=== PATIENT | male | born 1945 | race Caucasian/White ===

== ENCOUNTER 2020-04-19 23:40 | Emergency (ER) | payer MEDICARE ==
[~2020-04-19] VITALS: Ht 170.2 cm; Wt 75.0 kg
[2020-04-19 23:59] LABS: BASOPHILS % (AUTO) 1 % (0-10); EOSINOPHILS % (AUTO) 4 % (0-10); HEMATOCRIT 44 % (40-54); HEMOGLOBIN 15.1 G/DL (13.3-17.7); LYMPHOCYTES % (AUTO) 36 % (12-44); MEAN CORPUSCULAR HEMOGLOBIN 32 PG (25-34); MEAN CORPUSCULAR HGB CONC 34 G/DL (32-36); MEAN CORPUSCULAR VOLUME 93 FL (80-99); MEAN PLATELET VOLUME 10.6 FL (7.4-10.4); MONOCYTES % (AUTO) 9 % (0-12); NEUTROPHILS % (AUTO) 51 % (42-75); PLATELET COUNT 236 10^3/uL (130-400); WHITE BLOOD COUNT 6.1 10^3/uL (4.3-11.0)
[2020-04-20] LABS: EOSINOPHILS # (AUTO) 0.3 10^3/uL (0.0-0.3); LYMPHOCYTES # (AUTO) 2.2 X 10^3 (1.0-4.0); MONOCYTES # (AUTO) 0.5 X 10^3 (0.0-1.0); NEUTROPHILS # (AUTO) 3.1 X 10^3 (1.8-7.8)
--- NOTE | 2020-04-20 | ED Chest Pain ---
General Chief Complaint: Chest Pain Stated Complaint: CHEST PAIN Source: patient Exam Limitations: no limitations History of Present Illness Date Seen by Provider: Apr 19, 2020 Time Seen by Provider: 23:53 Initial Comments Patient is a 74-year-old male who presents to the emergency department today with a chief complaint of sharp intermittent chest pain that is located just above the left nipple. Patient states that he has had an onset of this discomfort this evening. Patient states that his episodes started around 6:00 this evening. Patient states that he had accelerated episodes throughout the evening. He describes it is very brief lasting just seconds like little sharp pokes in his chest. He denies any associated symptoms of shortness of breath, diaphoresis, nausea, radiation of the pain. Patient states that he has a history of metastatic prostate cancer. He denies any recent prolonged travel or recent prolonged immobility. He denies any history of recent fevers, chills, cough, congestion. No illnesses. Patient states that he is very active and does at least 500 push-ups a week. He states he did 125 today and did not have any episodes of discomfort. Patient states he was just sitting watching TV with his this evening when he became concerned that the pain might be related to his heart and decided to present to the emergency department. Patient does have a history of hypertension but recently discontinued taking his losartan after he lost 20 pounds and his blood pressure came down. All other review of systems reviewed and negative except as stated. Timing/Duration: 4-6 hours Severity/Quality: sharp Location: other (Left mid chest) Radiation: no radiation Activities at Onset: none Prior CP/Workup: no prior chest pain, no prior cardiac workup ASA po COLLAR SETTER: No NTG SL COLLAR SETTER: No Associated Symptoms: denies symptoms Allergies and Home Medications Allergies Coded Allergies: No Known Drug Allergies (Unverified , 04/19/20) Patient Home Medication List Home Medication List Reviewed: Yes Review of Systems Review of Systems Constitutional: see HPI EENTM: No Symptoms Reported Respiratory: No Symptoms Reported Cardiovascular: Chest Pain Gastrointestinal: No Symptoms Reported Genitourinary: No Symptoms Reported Musculoskeletal: no symptoms reported Skin: no symptoms reported Psychiatric/Neurological: No Symptoms Reported Endocrine: No Symptoms Reported Hematologic/Lymphatic: No Symptoms Reported All Other Systems Reviewed Negative Unless Noted: Yes Physical Exam Vital Signs Vital Signs - First Documented 04/19/20 23:50 Temp 36.5 Pulse 63 Resp 14 B/P (MAP) 169/90 (116) Pulse Ox 96 O2 Delivery Room Air Capillary Refill : Height, Weight, BMI Height: '" Weight: lbs. oz. kg; BMI Method: General Appearance: No Apparent Distress HEENT: PERRL/EOMI Neck: Normal Inspection Respiratory: Chest Non Tender, Lungs Clear, Normal Breath Sounds, No Accessory Muscle Use, No Respiratory Distress Cardiovascular: Regular Rate, Rhythm Gastrointestinal: Normal Bowel Sounds, Non Tender, Soft Extremity: Normal Inspection, Normal Range of Motion, Non Tender, No Calf Tenderness Neurologic/Psychiatric: Alert, Oriented x3, No Motor/Sensory Deficits, Normal Mood/Affect Skin: Normal Color, Warm/Dry Progress/Results/Core Measures Results/Orders Lab Results Laboratory Tests Test 04/19/20 23:45 Range/Units White Blood Count 6.1 4.3-11.0 10^3/uL Red Blood Count 4.73 4.35-5.85 10^6/uL Hemoglobin 15.1 13.3-17.7 G/DL Hematocrit 44 40-54 % Mean Corpuscular Volume 93 80-99 FL Mean Corpuscular Hemoglobin 32 25-34 PG Mean Corpuscular Hemoglobin Concent 34 32-36 G/DL Red Cell Distribution Width 12.3 10.0-14.5 % Platelet Count 236 130-400 10^3/uL Mean Platelet Volume 10.6 H 7.4-10.4 FL Immature Granulocyte % (Auto) 0 % Neutrophils (%) (Auto) 51 42-75 % Lymphocytes (%) (Auto) 36 12-44 % Monocytes (%) (Auto) 9 0-12 % Eosinophils (%) (Auto) 4 0-10 % Basophils (%) (Auto) 1 0-10 % Neutrophils # (Auto) 3.1 1.8-7.8 X 10^3 Lymphocytes # (Auto) 2.2 1.0-4.0 X 10^3 Monocytes # (Auto) 0.5 0.0-1.0 X 10^3 Eosinophils # (Auto) 0.3 0.0-0.3 10^3/uL Basophils # (Auto) 0.0 0.0-0.1 10^3/uL Immature Granulocyte # (Auto) 0.0 0.0-0.1 10^3/uL Sodium Level 143 135-145 MMOL/L Potassium Level 4.1 3.6-5.0 MMOL/L Chloride Level 104 98-107 MMOL/L Carbon Dioxide Level 28 21-32 MMOL/L Anion Gap 11 5-14 MMOL/L Blood Urea Nitrogen 18 7-18 MG/DL Creatinine 1.01 0.60-1.30 MG/DL Estimat Glomerular Filtration Rate > 60 BUN/Creatinine Ratio 18 Glucose Level 105 70-105 MG/DL Calcium Level 10.0 8.5-10.1 MG/DL Troponin I < 0.30 <0.30 NG/ML My Orders Orders - TYRONE SWAN MD Ed Iv/Invasive Line Start (04/19/20 23:51) Cbc With Automated Diff (04/19/20 23:51) Troponin I Fs (04/19/20 23:51) Chest 1 View Ap/Pa Only (04/19/20 23:51) Ekg Tracing (04/19/20 23:51) Basic Metabolic Panel (04/19/20 23:58) Vital Signs/I&O 04/19/20 04/19/20 23:50 23:50 Temp 36.5 Pulse 63 Resp 14 B/P (MAP) 169/90 (116) Pulse Ox 96 O2 Delivery Room Air Room Air Progress Progress Note : Time: 23:58 Progress Note 74-year-old patient presents to the emergency department today with a chief complaint of intermittent brief sharp chest pain. Patient evaluation includes a physical exam, EKG, chest x-ray, CBC, chemistry and troponin. Patient's history is not significantly suspicious for ACS. His EKG is normal showing a normal sinus rhythm without ectopy, no ST segment elevations or depressions are noted. Patient's age gets him 2 points on the heart score for Major cardiac events. Risk factors are hypertension only. This gives him a score of 2 points which gives him a 0.9 to 1.7% risk of an adverse cardiac event. Patient disposition to be determined after evaluation of laboratory studies. [id number] Patient's laboratory studies have been evaluated, CBC is normal, BMP is normal and troponin is undetectable. Patient's chest x-ray is reviewed and shows normal cardiac silhouette, normal bony structures, no infiltrates or effusions or other abnormalities are seen. Patient has not had any discomfort since arrival into the emergency department. His heart score remains a 2. Patient is advised to call his primary care doctor tomorrow for follow-up. Both he and his verbalized understanding of the discharge instructions. They are agreeable with the plan of care which is discharged this evening. All questions were sought and answered. Patient is stable for discharge. Initial ECG Impression Date: Apr 19, 2020 Initial ECG Impression Time: 23:45 Initial ECG Rate: 62 Initial ECG Rhythm: Normal Sinus Initial ECG Intervals: Normal Initial ECG Impression: Normal Diagnostic Imaging Diagonstic Imaging: Xray Plain Films/CT/US/NM/MRI: chest Comments Normal mediastinum; normal cardiac silhouette; normal bony structures, no pleural effusion or infiltrates Departure Impression Primary Impression: Chest pain Qualified Codes: R07.9 - Chest pain, unspecified Disposition: 01 HOME, SELF-CARE Condition: Stable Departure-Patient Inst. Decision time for Depature: 00:40 Referrals: BRODY ANTOINE MD (PCP/Family) Primary Care Physician Patient Instructions: Chest Pain That Is Not Caused by the Heart (DC) Add. Discharge Instructions: Please call your primary care doctor's office tomorrow for follow-up appointment. Continue your aspirin daily. Please come back to the emergency department if you have any recurrence of chest pain especially pain that is associated with shortness of breath, sweating, nausea or any other emergent concerning symptoms. Copy Copies To 1: BRODY ANTOINE MD, KATHRYN M MD Apr 20, 2020 00:00
[2020-04-20 00:21] LABS: BUN/CREATININE RATIO 18; CARBON DIOXIDE 28 MMOL/L (21-32); CREATININE SERUM 1.01 MG/DL (0.60-1.30); GFR ESTIMATED > 60; GLUCOSE 105 MG/DL (70-105); POTASSIUM 4.1 MMOL/L (3.6-5.0)
[2020-04-20 00:22] LABS: CHLORIDE 104 MMOL/L (98-107); SODIUM 143 MMOL/L (135-145)
[2020-04-20 00:47] VITALS: BP 158/88
--- NOTE | 2020-04-20 07:14 | Diagnostic Imaging Report ---
CHEST 1 VIEW AP/PA ONLY Indication: Chest pain. Comparison: None available. Findings: No focal airspace disease in the visualized lungs. Please note that the posterior lower lobes are poorly evaluated by portable radiography. No pleural effusion or pneumothorax. Normal cardiomediastinal silhouette. Impression: 1. No acute cardiopulmonary process by portable radiography. Dictated by: Dictated on workstation # [id number]
== END 2020-04-20 00:47 | disposition home or self-care (01) ==
LOC: EDUNIT# 23:40 → ER FS 23:43
DX: R07.89 Other chest pain (principal); I10 Essential (primary) hypertension; C80.1 Malignant (primary) neoplasm, unspecified; C79.82 Secondary malignant neoplasm of genital organs; Z91.128 Patient's intentional underdosing of medication regimen for other reason
CPT/HCPCS: 36415; 71045; 80048; 84484; 85025; 93005

== ENCOUNTER → 2021-05-25 | Outpatient (CLI) | payer MEDICARE ==
--- NOTE | 2021-05-25 12:14 | Diagnostic Imaging Report ---
INDICATION: Right shoulder pain. TIME OF EXAM: 11:45 AM 2 views right shoulder show normal glenohumeral and acromioclavicular alignment. Acromiohumeral space is normal. No fracture or dislocation is identified. IMPRESSION: No acute bony abnormalities detected. Dictated by: Dictated on workstation # [id number]
== END ==
LOC: RAD FS 11:30
PROVIDERS: ATTEND Family Medicine
DX: M25.511 Pain in right shoulder (principal)
CPT/HCPCS: 73030

== ENCOUNTER → 2022-06-08 | Outpatient (CLI) | payer MEDICARE | LOC: LAB FS 13:59 | PROVIDERS: ATTEND Internal Medicine | DX: C61 Malignant neoplasm of prostate (principal) ==